=== PATIENT | male | born 1950 | race Caucasian/White ===

== ENCOUNTER 2021-12-05 16:15 | Emergency (ER) | payer OTHER ==
[~2021-12-05] VITALS: Ht 167.6 cm; Wt 124.7 kg
[2021-12-05 16:25] VITALS: BP 159/67
[2021-12-05] MEDS ORDERED: HYDROcodone/acetaminophen 10/325mg tab PO ONE (17:15)
[2021-12-05] MEDS ORDERED: LIDOcaine 1% 30ml preserv. free vial IJ ONE (17:15)
[2021-12-05] MEDS ORDERED: TETanus/Pertussis (Acell)/Diphther VAC/PF (Tdap-Adult) 0.5ml syringe IMVAC ONE (17:15)
[2021-12-05] MEDS ORDERED: IBUP-1986 PO (19:11)
[2021-12-05] MEDS ORDERED: HYDR-3965 PO (19:11)
== END 2021-12-05 19:10 | disposition home or self-care (01) ==
LOC: ER 16:16
DX: S01.111A Laceration without foreign body of right eyelid and periocular area, initial encounter (principal); R51.9 Headache, unspecified; R07.81 Pleurodynia; Z20.3 Contact with and (suspected) exposure to rabies; W11.XXXA Fall on and from ladder, initial encounter; Y93.89 Activity, other specified; Y92.89 Other specified places as the place of occurrence of the external cause; Y99.8 Other external cause status
CPT/HCPCS: 12002; 12052; 71100; 90471; 90715; 99284